=== PATIENT | male | born 2000 | race Caucasian/White ===

== ENCOUNTER 2021-01-17 14:27 | Emergency (ER) | payer OTHER, SELFPAY ==
[2021-01-17 15:02] VITALS: BP 125/65; PULSE 71; RESP 18; TEMP 36.7; O2SAT 97; BMI 31.0
[2021-01-17 16:26] LABS: MANUAL DIFF FLAG NO
[2021-01-17 16:27] LABS: Basophils Percent Auto 0.2 % (0-2); Eosinophils Percent Auto 0.3 % (0-4); Hematocrit 47.7 % (42-52); Hemoglobin 15.3 g/dl (14.0-18.0); Imm Gran Abs Auto 0.07 X10*3/uL (0.00-0.03); Imm Gran Pct Auto 0.5 % (0.0-0.4); Lymphocytes Absolute Auto 1.5 X10*3/uL (1.2-4.9); Lymphocytes Percent Auto 10.2 % (20-40); Mean Corpuscular HGB Conc 32.1 g/dl (31.0-36.0); Mean Corpuscular Hemoglobin 29.2 pg (27.0-33.0); Monocytes Absolute Auto 0.8 X10*3/uL (0.1-1.2); Monocytes Percent Auto 5.4 % (2-11); Neutrophils Absolute Auto 12.2 X10*3/uL (2.0-8.3); Neutrophils Percent Auto 83.4 % (45-73); Platelet Count 212 X10*3/uL (160-400); Red Blood Count 5.24 X10*6/uL (4.60-5.80); Red Cell Distribution Width 12.5 % (11.0-16.0); White Blood Count 14.6 X10*3/uL (4.8-10.8)
[2021-01-17 17:00] LABS: Anion Gap 11 (12-20); Blood Urea Nitrogen 13 mg/dL (9-16); Calcium 9.5 mg/dL (8.4-10.2); Carbon Dioxide 29 mmol/L (22-29); Chloride 105 mmol/L (96-108); Creatinine Clr Calc Pharmacy 151.2; Estimated Glomerular Filt Rate > 60; Glucose Random 85 mg/dL (60-115); Potassium 4.2 mmol/L (3.3-5.1); Sodium 141 mmol/L (135-145)
[2021-01-17 17:09] LABS: Glucose Urine UA NEG (NEG); Leukocyte Esterase Urine NEG (NEG); Nitrite Urine NEG (NEG); Specific Gravity - Urine 1.025 (1.005-1.025); Urine Blood 2+ (NEG); Urine Ketones NEG (NEG); Urine Protein 2+ MG/DL (NEG-TRACE)
[2021-01-17 17:35] LABS: Appearance Urine TURBID; Color Urine RED
[2021-01-17 17:38] LABS: RBC Urine TNTC /HPF (0); Renal Epithelial Cells Urine TRACE /LPF; WBC Urine 0 /HPF (0-4)
[2021-01-18 05:47] LABS: CT PCR NOT DETECTED (Not Detect.); NG PCR NOT DETECTED (Not Detect.)
== END 2021-01-17 20:10 | disposition left against medical advice (07) ==
PROVIDERS: Emergency Provider Emergency Medicine; PCP Pediatrics
DX: R31.9 Hematuria, unspecified (principal); M54.5 Low back pain; Z87.442 Personal history of urinary calculi
CPT/HCPCS: 36415; 80048; 81001; 81003; 85025; 87491; 87591; 99283

== ENCOUNTER 2021-05-27 21:02 | Emergency (ER) | payer OTHER, SELFPAY ==
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
[2021-05-27 21:06] VITALS: BP 139/67; PULSE 86; RESP 16; TEMP 36.6; O2SAT 98; BMI 31.9
[2021-05-28] VITALS: BP 145/85; PULSE 64; RESP 16; O2SAT 98
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
--- NOTE | 2021-05-28 02:10 | PC.NURSE ---
RN to bedside to provide patient with discharge instructions per md instructions and patient found to not be present in bed. prior to rn retrieving discharge paperwork the patient was noted sitting on the stretcher with his mother, brother (discharged patient) and could be heard saying I'm ready to go . Pt was not observed ambulating out of the emergency room
== END 2021-05-28 02:10 | disposition home or self-care (01) ==
PROVIDERS: Emergency Provider Emergency Medicine Emergency Medical Services; PCP Pediatrics
DX: S09.90XA Unspecified injury of head, initial encounter (principal); S63.602A Unspecified sprain of left thumb, initial encounter; M79.642 Pain in left hand; G44.309 Post-traumatic headache, unspecified, not intractable; Y04.8XXA Assault by other bodily force, initial encounter; Y93.9 Activity, unspecified; Y92.9 Unspecified place or not applicable; Y99.9 Unspecified external cause status
CPT/HCPCS: 70450; 73130; 99283; 99284

== ENCOUNTER 2022-01-25 11:49 | Emergency (ER) | payer OTHER, SELFPAY ==
[2022-01-25 12:32] VITALS: BP 133/54; PULSE 52; RESP 16; TEMP 36.6; O2SAT 94; BMI 35.6
--- NOTE | 2022-01-25 15:45 | ED.GENADULT ---
HPI - General Adult General Chief complaint: General Medical Stated complaint: l foot ingrown toenail Time Seen by Provider: 01/25/22 15:14 Source: patient Mode of arrival: ambulatory Limitations: no limitations History of Present Illness HPI narrative: 21-year-old male presents to ED for left ingrown toenail that has been painful for the past couple of days. Patient denies any fever, chills, recent trauma to the foot. Patient states some drainage from ingrown nail. Related Data Previous Rx's Medication Instructions Recorded cephalexin 500 mg capsule 500 mg PO QID 7 Days #28 cap 01/25/22 doxycycline hyclate 100 mg tablet 100 mg PO BID 7 Days #14 tab 01/25/22 naproxen 500 mg tablet 500 mg PO BID PRN 10 Days #20 tab 01/25/22 triamcinolone acetonide 0.5 % 1 appl TOPICAL BID 14 Days #15 g 01/25/22 topical cream Allergies Allergy/AdvReac Type Severity Reaction Status Date / Time No Known Allergies Allergy Verified 01/25/22 12:32 [No Known Allergies*] Review of Systems Review of Systems: Left ingrown toenail Yes all other systems are reviewed and are negative [facility] Past Medical History Medical History (Updated 01/25/22 @ 15:55 by KLAUS Ortiz) Kidney stones Surgical History (Updated 01/17/21 @ 15:04 by Rena Reed) H/O hernia repair Social History Social History Advance Directives: No Advance Directives Information Provided: No Physical Exam ED Vital Signs: Vital Signs - 24 hr 01/25/22 12:32 Temperature 97.9 F Pulse Rate 52 Respiratory Rate 16 Blood Pressure 133/54 L Pulse Oximetry 94 BMI result Body Mass Index 35.6 Const General: cooperative, healthy appearing, comfortable, no acute distress, well developed, alert, awake and Physically active Orientation/consciousness: patient oriented x3 HENMT Head: Yes normal to inspection, Yes No palpable skull fracture present, Yes normocephalic, Yes atraumatic, Yes abrasion and No Acrocyanosis present Eyes General: appearance normal, both eyes and all related structures Neck Neck: Yes normal visual inspection, Yes full ROM, Yes no lymphadenopathy, Yes no meningeal signs, Yes trachea midline, Yes supple, No anterior neck swelling and No tender Chest Chest palpation & inspection: normal inspection of the chest and normal palpation of entire chest wall Resp Effort & Inspection: normal respiratory effort and able to speak in complete sentences Auscultation: clear to auscultation bilaterally Cardio Jugular venous distension: no JVD Heart sounds: S1 normal heart sound present and S2 normal heart sound present GI Inspection: Yes normal to inspection and No abdominal wall ecchymosis Palpation (GI): Soft to palpation, not firm, nontender, no guarding and not rigid General: No CVA tenderness and Yes no CVA tenderness Back/Spine/Pelvis Back: no CVA tenderness, No CVA tenderness and No back tenderness Skin General skin exam: no rashes or lesions noted and elasticity normal Neuro General: patient oriented x3, gait normal, no meningeal signs and CN's II-XI intact bilaterally Cranial nerves: Yes CN's II-XII intact bilaterally Extrem General: Yes normal to inspection and Yes full ROM Ankle/foot/toe images: 1. Positive for left finger toenail that is infected with pus drainage and some blood and redness. Negative for ecchymosis, gangrene, or obvious deformity. Lower extremity pedal pulses intact. Lower extremity motor/nose/vascular exam intact Psych Appearance: grossly normal, well kempt and not disheveled Course Course Course Narrative: Infected ingrown toenail. Reevaluation(s) Reevaluation #1: It was discussed with patient twice by me to incise the ingrown toenail due to the infection of drainage. He was informed digital block will be done and then I would excise the nail but patient refused. Patient prefer conservative management. Patient will be discharged with antibiotics and recommend to soak foot in water 4 times a day for 20 minutes. Patient will be referred to contract project manager. Time: 15:52 Medical Decision Making [facility] Narrative Medical decision making narrative: Infected ingrown toe nail Discharge Plan Discharge Clinical Impression: Ingrowing nail, left great toe Patient Disposition: Home, Self-Care Instructions: Ingrown Nail (ED), Warm Compress or Soak (ED) Additional Instructions: You will be discharged with antibiotics. Recommend warm compress 4 times a day for 20 minutes ( soak foot into warm water). Return to the ED if there is increased swelling, increased redness, profuse pus discharge, fever, chills, bluish black discoloration of toe, red streaks known upper extremity, or any other concerning symptoms. . Prescriptions: New cephalexin 500 mg capsule 500 mg PO QID 7 Days Qty: 28 0RF doxycycline hyclate 100 mg tablet 100 mg PO BID 7 Days Qty: 14 0RF naproxen 500 mg tablet 500 mg PO BID PRN (Reason: pain) 10 Days Qty: 20 0RF triamcinolone acetonide 0.5 % cream 1 appl topical BID 14 Days Qty: 15 0RF Referrals: Brian Cruz [Physician] - (Left ingrown infected toenail) Stand Alone Forms: Work/School Release Interventions: ED Discharge Assessment Last Done: 01/25/22 16:44 Discharge Date/Time: 01/25/22 16:45 Print Language: Chadian
== END 2022-01-25 16:45 | disposition home or self-care (01) ==
PROVIDERS: Emergency Provider Student in an Organized Health Care Education/Training Program
DX: L60.0 Ingrowing nail (principal); M79.675 Pain in left toe(s)
CPT/HCPCS: 99283

== ENCOUNTER 2022-04-06 10:27 | Emergency (ER) | payer OTHER, SELFPAY ==
[2022-04-06 10:38] VITALS: PULSE 90; RESP 18; TEMP 37; O2SAT 97; BMI 28.7
--- NOTE | 2022-04-06 11:08 | ED.WOUNDLAC ---
HPI - Wound/Laceration General Chief Complaint: Wound/Laceration Stated Complaint: Ingrown L foot Time Seen by Provider: 04/06/22 10:54 Source: patient Mode of arrival: ambulatory Limitations: no limitations History of Present Illness HPI narrative: 21-year-old male presenting to the ED with complaints of ingrown toenail to the left great toenail that he has had for the past few weeks to months. He reports that recently he was trying to remove the ingrown toenail himself although was unsuccessful and now has worsening pain today. He denies any fevers, chills, recent trauma to foot/toes or any other symptoms complaints concerns or injuries at this time. Related Data Previous Rx's Medication Instructions Recorded cephalexin 500 mg capsule 500 mg PO QID 7 days #28 caps 01/25/22 doxycycline hyclate 100 mg tablet 100 mg PO BID 7 days #14 tabs 01/25/22 naproxen 500 mg tablet 500 mg PO BID PRN pain 10 days #20 01/25/22 tabs triamcinolone acetonide 0.5 % 1 appl topical BID 2 weeks #15 01/25/22 topical cream grams acetaminophen 300 mg-codeine 30 mg 1 tab PO Q8H PRN pain #14 tabs 04/06/22 tablet cephalexin 500 mg capsule 500 mg PO Q6H 10 days #40 caps 04/06/22 doxycycline monohydrate 100 mg 100 mg PO BID 10 days #20 tabs 04/06/22 tablet Allergies Allergy/AdvReac Type Severity Reaction Status Date / Time No Known Allergies Allergy Verified 01/25/22 12:32 [No Known Allergies*] Review of Systems Review of Systems: Constitutional : Denies history of same, Denies any other sites involved, Denies IV drug use, Denies history of MRSA, Denies swollen glands, Denies injury, Denies Fever, Denies Chills, + Sig Pain, Denies Systemic symptoms Cardiovascular : No Chest Pain, No SOB Respiratory : No Dyspnea Gastrointestinal : No abdominal pain Musculoskeletal : No Joint Swelling Skin : + ingrown toenail to left great toe lateral aspect with surrounding erythema and significant pain, no abscess, No skin laceration, No Foreign bodies, Denies bites, Denies discharge Neuro : No Weakness, No Numbness/tingling Psych : No SI/HI/thoughts of self injury Yes all other systems are reviewed and are negative PMFSH Past Medical History Attestation statement: The following information was validated with the patient. Source: old records reviewed and nursing notes reviewed Medical History Kidney stones Surgical History H/O hernia repair Social History Social History Advance Directives: No Advance Directives Information Provided: No Physical Exam Vital Signs: Vital Signs: Last Vital Signs Temp 98.6 F 04/06/22 10:38 Pulse 90 04/06/22 10:38 Resp 18 04/06/22 10:38 Pulse Ox 97 04/06/22 10:38 O2 Del Method 04/06/22 10:38 BMI result Body Mass Index 28.7 vital signs have been reviewed as normal and appeared to be correct. Blood pressure normal Heart rate normal. Respiration rate normal. Temperature normal. Oxygen saturation normal. Appearance: Alert. Oriented X3. No acute distress. Head: Normal external exam. Normocephalic. Atraumatic. Eyes: PERRLA. EOMI. Conjunctiva and sclera normal. Eyelids normal. ENT: Pharynx normal. Uvula midline. Moist mucous membranes. Neck: Normal inspection. Neck supple. FROM. CVS: Normal heart rate and rhythm. Respiratory: No respiratory distress. Painless inspiration. Skin: Skin warm and dry. Normal skin color. Normal skin turgor. To left great toe the lateral aspect patient has a ingrown toenail with moderate soft tissue swelling and erythema. No purulent drainage or foreign bodies noted at this time no additional rashes/lesions/lacerations noted. Extremities: Left great toe with some tenderness and soft tissue swelling although no bony tenderness noted. Otherwise all other extremities exhibit normal range of motion nontender. Neuro: Oriented X 3. No motor deficit. No sensory deficit. Reflexes normal. Normal steady gait. No focal neuro deficits noted. Vascular: + radial pulses/+ 2 distal pedal pulses/+2 dorsalis pedis b/l. Normal cap refill. No cyanosis noted to upper extremity nails and lower extremity toes nails. Course Course Course Narrative: Patient now status post ingrown toenail removal. I removed the large ingrown toenail. Patient tolerated procedure well. No complications. Will DC home with antibiotics and instructions to return if any new or worsening symptoms and follow-up with podiatry. Patient understands agrees with this plan. MDM - Wound/Laceration Medical Records Attestation: I reviewed the patient's medical records. Discharge Plan Discharge Clinical Impression: Ingrowing left great toenail Patient Disposition: Home, Self-Care Instructions: Ingrown Nail (ED), Warm Compress or Soak (ED) Prescriptions: New doxycycline monohydrate 100 mg tablet 100 mg PO BID 10 Days Qty: 20 0RF cephalexin 500 mg capsule 500 mg PO Q6H 10 Days Qty: 40 0RF acetaminophen-codeine 300-30 mg tablet 1 tab PO Q8H PRN (Reason: pain) Qty: 14 0RF No Action cephalexin 500 mg capsule 500 mg PO QID 7 Days Qty: 28 0RF doxycycline hyclate 100 mg tablet 100 mg PO BID 7 Days Qty: 14 0RF naproxen 500 mg tablet 500 mg PO BID PRN (Reason: pain) 10 Days Qty: 20 0RF triamcinolone acetonide 0.5 % cream 1 appl topical BID 14 Days Qty: 15 0RF Referrals: Brian Cruz [Physician] - 2 days (call to make a follow up appointment ) Stand Alone Forms: Work/School Release
== END 2022-04-06 11:50 | disposition home or self-care (01) ==
PROVIDERS: Emergency Provider Emergency Medicine
DX: L60.0 Ingrowing nail (principal); M79.675 Pain in left toe(s)
CPT/HCPCS: 11730; 99282; 99283; 99284

== ENCOUNTER 2022-08-03 16:16 | Emergency (ER) | payer OTHER, SELFPAY ==
--- NOTE | ~2022-08-03 | XR_ITS ---
EXAMINATION: XR CHEST CLINICAL INFORMATION: Chest pain. COMPARISON: Chest radiograph 09/24/2017. TECHNIQUE: Frontal view of the chest was obtained. FINDINGS: Normal appearance of the cardiomediastinal silhouette. Suspect subtle focal hazy airspace opacities in the right lower lobe. No pleural effusion. No pneumothorax. No acute osseous abnormalities. XR/XR chest 1V IMPRESSION: Suspect subtle focal airspace opacities in the right lower lobe which could be related with aspiration or early infiltrate in the appropriate clinical context.
--- NOTE | ~2022-08-03 | US_ITS ---
EXAMINATION: US VENOUS ULTRASOUND WITH DOPPLER LOWER EXTREMITY, LEFT CLINICAL INFORMATION: Left lower extremity pain. COMPARISON: None TECHNIQUE: Ultrasound of the deep veins is performed from the hip to the calf with compression sonography and color and pulse Doppler assessment. Spectral analysis with color-flow imaging is performed. FINDINGS: There is normal venous compression and respiratory variation and augmented flow. The visualized common femoral vein, superficial femoral vein, profunda femoral vein, popliteal vein, and the trifurcation region shows no evidence of deep venous thrombosis. There is a 2.3 x 4.7 x 1.8 cm Carolina's cyst. If the patient's symptoms persist, followup ultrasound in 5 days 7 days might be of value to exclude proximal propagation from a non-visualized calf vein. US/US venous duplex LE IMPRESSION: 1. No DVT demonstrated in the left lower extremity. 2. There is a 4.7 cm Carolina's cyst.
[2022-08-03 17:07] VITALS: BP 138/72; PULSE 63; RESP 16; TEMP 36.8; O2SAT 97; BMI 34.0
--- NOTE | 2022-08-03 17:10 | ECG_ITS ---
Test Reason : GENERAL MEDICAL Blood Pressure : / mmHG Vent. Rate : 061 BPM Atrial Rate : 061 BPM P-R Int : 148 ms QRS Dur : 094 ms QT Int : 398 ms P-R-T Axes : 036 006 014 degrees QTc Int : 400 ms Normal sinus rhythm Normal ECG No previous ECGs available Referred By: Last Ortiz Electronically Signed By:Cam Almazan
--- NOTE | 2022-08-03 17:12 | ED.GENADULT ---
HPI - General Adult General Chief complaint: Extremity Problem Stated complaint: left calf bruising Time Seen by Provider: 08/03/22 18:14 Related Data Previous Rx's Medication Instructions Recorded cephalexin 500 mg capsule 500 mg PO QID 7 days #28 caps 01/25/22 doxycycline hyclate 100 mg tablet 100 mg PO BID 7 days #14 tabs 01/25/22 naproxen 500 mg tablet 500 mg PO BID PRN pain 10 days #20 01/25/22 tabs triamcinolone acetonide 0.5 % 1 appl topical BID 2 weeks #15 01/25/22 topical cream grams acetaminophen 300 mg-codeine 30 mg 1 tab PO Q8H PRN pain #14 tabs 04/06/22 tablet cephalexin 500 mg capsule 500 mg PO Q6H 10 days #40 caps 04/06/22 doxycycline monohydrate 100 mg 100 mg PO BID 10 days #20 tabs 04/06/22 tablet doxycycline monohydrate 100 mg 100 mg PO BID 10 days #20 caps 08/03/22 capsule Allergies Allergy/AdvReac Type Severity Reaction Status Date / Time No Known Allergies Allergy Verified 01/25/22 12:32 [No Known Allergies*] REPLACED BY [facility] Past Medical History Medical History Kidney stones Surgical History H/O hernia repair Social History Social History Advance Directives: No Advance Directives Information Provided: No Physical Exam ED Vital Signs: Vital Signs - 24 hr 08/03/22 17:07 Temperature 98.3 F Pulse Rate 63 Respiratory Rate 16 Blood Pressure 138/72 Pulse Oximetry 97 Oxygen Delivery Method Room Air BMI result Body Mass Index 34.0 Course Course Course Narrative: RME: patient presents to the ED for left calf pain and posterior knee pain since yesterday. 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 patient states mild chest discomfort yesterday. Venous Ultrasound of legs orderd. labs, EKG, chesr xray, and D- dimer ordered. VItal sigsn stable. LLE extremitie motor, neuro, and vascular exam is intact. Medical Decision Making Lab Data Result diagrams: 08/03/22 18:09 12/01/22 18:09 Labs: Lab Results 08/03/22 08/03/22 08/03/22 Range/Units 18:09 18:09 18:09 WBC 9.4 (4.8-10.8) X10*3/uL RBC 5.02 (4.60-5.80) X10*6/uL Hgb 14.2 (14.0-18.0) g/dl Hct 43.8 (42.0-52.0) % MCV 87.3 (80.0-98.0) fL MCH 28.3 (27.0-33.0) pg MCHC 32.4 (31.0-36.0) g/dl RDW 13.0 (11.0-16.0) % Plt Count 263 (160-400) X10*3/uL MPV 9.8 (9.4-12.4) fL Immature Gran % (Auto) 0.3 (0.0-0.4) % Neut % (Auto) 67.5 (45-73) % Lymph % (Auto) 25.8 (20-40) % [place] % (Auto) 5.4 (2-11) % Eos % (Auto) 0.8 (0-4) % Baso % (Auto) 0.2 (0-2) % Lymph # (Auto) 2.4 (1.2-4.9) X10*3/uL [place] # (Auto) 0.5 (0.1-1.2) X10*3/uL Eos # (Auto) 0.1 (0.0-0.4) X10*3/uL Baso # (Auto) 0.0 (0.0-0.2) X10*3/uL Abs Immat Gran (auto) 0.03 (0.00-0.03) X10*3/uL Absolute Neuts (auto) 6.4 (2.0-8.3) x10*3/uL Absolute Nucleated RBC 0.000 (0.0-0.012) X10*3/uL Nucleated RBC % (auto) 0.0 (0.0-0.2) /100WBC PT 11.6 (10.0-13.1) SEC INR 1.0 (0.9-1.1) APTT 34.2 (26.0-36.4) SEC D-Dimer High Sensitivty NG/ML Sodium 136 (135-145) mmol/L Potassium 3.8 (3.3-5.1) mmol/L Chloride 104 (96-108) mmol/L Carbon Dioxide 26 (22-29) mmol/L Anion Gap 10 L (12-20) BUN 12 (9-16) mg/dL Creatinine 0.80 (0.5-1.4) mg/dL Estim Creat Clear Calc 170.9 Estimated GFR > 60 Random Glucose 105 (60-115) mg/dL Calcium 9.5 (8.4-10.2) mg/dL Total Bilirubin 1.4 H (0.0-1.0) mg/dL AST 23 (5-37) U/L ALT 30 (0-40) U/L Alkaline Phosphatase 104 (39-117) U/L Troponin I High Sens (<3.5-35.0) ng/L B-Natriuretic Peptide (<100) pg/mL Total Protein 6.6 (6.5-8.0) g/dL Albumin 4.3 (3.5-5.0) g/dL 08/03/22 08/03/22 08/03/22 Range/Units 18:09 18:09 18:09 WBC (4.8-10.8) X10*3/uL RBC (4.60-5.80) X10*6/uL Hgb (14.0-18.0) g/dl Hct (42.0-52.0) % MCV (80.0-98.0) fL MCH (27.0-33.0) pg MCHC (31.0-36.0) g/dl RDW (11.0-16.0) % Plt Count (160-400) X10*3/uL MPV (9.4-12.4) fL Immature Gran % (Auto) (0.0-0.4) % Neut % (Auto) (45-73) % Lymph % (Auto) (20-40) % [place] % (Auto) (2-11) % Eos % (Auto) (0-4) % Baso % (Auto) (0-2) % Lymph # (Auto) (1.2-4.9) X10*3/uL [place] # (Auto) (0.1-1.2) X10*3/uL Eos # (Auto) (0.0-0.4) X10*3/uL Baso # (Auto) (0.0-0.2) X10*3/uL Abs Immat Gran (auto) (0.00-0.03) X10*3/uL Absolute Neuts (auto) (2.0-8.3) x10*3/uL Absolute Nucleated RBC (0.0-0.012) X10*3/uL Nucleated RBC % (auto) (0.0-0.2) /100WBC PT (10.0-13.1) SEC INR (0.9-1.1) APTT (26.0-36.4) SEC D-Dimer High Sensitivty 287 NG/ML Sodium (135-145) mmol/L Potassium (3.3-5.1) mmol/L Chloride (96-108) mmol/L Carbon Dioxide (22-29) mmol/L Anion Gap (12-20) BUN (9-16) mg/dL Creatinine (0.5-1.4) mg/dL Estim Creat Clear Calc Estimated GFR Random Glucose (60-115) mg/dL Calcium (8.4-10.2) mg/dL Total Bilirubin (0.0-1.0) mg/dL AST (5-37) U/L ALT (0-40) U/L Alkaline Phosphatase (39-117) U/L Troponin I High Sens < 3.5 (<3.5-35.0) ng/L B-Natriuretic Peptide 13 (<100) pg/mL Total Protein (6.5-8.0) g/dL Albumin (3.5-5.0) g/dL Discharge Plan Discharge Clinical Impression: Carolina cyst, Pneumonia Patient Disposition: Home, Self-Care Instructions: Bakers Cyst (ED), Community Acquired Pneumonia (ED) Additional Instructions: You were evaluated for left calf pain and midsternal chest discomfort. Venous duplex of the left lower extremity is negative for blood clot, does show a Carolina's cyst. Please follow-up with your primary care physician for continued care. Chest x-ray indicates infiltrates consistent with pneumonia. Please take doxycycline 100 mg twice a day for the 10 days. Drink plenty of fluids. I have referred you to Dr. Paulino at [facility] to establish primary care. Thank you for choosing this emergency department for evaluation. Please follow-up with primary care physician as needed. Return to the emergency department for any new, concerning, or worsening symptoms. Prescriptions: New doxycycline monohydrate 100 mg capsule 100 mg PO BID 10 Days Qty: 20 0RF No Action cephalexin 500 mg capsule 500 mg PO QID 7 Days Qty: 28 0RF doxycycline hyclate 100 mg tablet 100 mg PO BID 7 Days Qty: 14 0RF naproxen 500 mg tablet 500 mg PO BID PRN (Reason: pain) 10 Days Qty: 20 0RF triamcinolone acetonide 0.5 % cream 1 appl topical BID 14 Days Qty: 15 0RF doxycycline monohydrate 100 mg tablet 100 mg PO BID 10 Days Qty: 20 0RF cephalexin 500 mg capsule 500 mg PO Q6H 10 Days Qty: 40 0RF acetaminophen-codeine 300-30 mg tablet 1 tab PO Q8H PRN (Reason: pain) Qty: 14 0RF Referrals: Christiano Paulino MD [Physician] - 3 days (Establish primary care) Interventions: ED Discharge Assessment Last Done: 08/03/22 20:43 Discharge Date/Time: 08/03/22 20:44
[2022-08-03 18:13] LABS: MANUAL DIFF FLAG NO
[2022-08-03 18:16] LABS: Basophils Percent Auto 0.2 % (0-2); Eosinophils Absolute Auto 0.1 X10*3/uL (0.0-0.4); Eosinophils Percent Auto 0.8 % (0-4); Hematocrit 43.8 % (42.0-52.0); Hemoglobin 14.2 g/dl (14.0-18.0); Imm Gran Abs Auto 0.03 X10*3/uL (0.00-0.03); Imm Gran Pct Auto 0.3 % (0.0-0.4); Lymphocytes Absolute Auto 2.4 X10*3/uL (1.2-4.9); Lymphocytes Percent Auto 25.8 % (20-40); Mean Corpuscular HGB Conc 32.4 g/dl (31.0-36.0); Mean Corpuscular Hemoglobin 28.3 pg (27.0-33.0); Mean Corpuscular Volume 87.3 fL (80.0-98.0); Mean Platelet Volume 9.8 fL (9.4-12.4); Monocytes Absolute Auto 0.5 X10*3/uL (0.1-1.2); Monocytes Percent Auto 5.4 % (2-11); Neutrophils Absolute Auto 6.4 x10*3/uL (2.0-8.3); Neutrophils Percent Auto 67.5 % (45-73); Platelet Count 263 X10*3/uL (160-400); Red Blood Count 5.02 X10*6/uL (4.60-5.80); White Blood Count 9.4 X10*3/uL (4.8-10.8)
--- NOTE | 2022-08-03 18:17 | ED_ITS ---
HPI - Extremity Problem General Chief complaint: Extremity Problem <Lydia Mcnamara NP - Last Filed: 08/04/22 00:18> Stated complaint: left calf bruising <Lydia Mcnamara NP - Last Filed: 08/04/22 00:18> Time Seen by Provider: 08/03/22 18:14 <Lydia Mcnamara NP - Last Filed: 08/04/22 00:18> Source: patient <Lydia Mcnamara NP - Last Filed: 08/04/22 00:18> Mode of arrival: ambulatory <Lydia Mcnamara NP - Last Filed: 08/04/22 00:18> Limitations: no limitations <Lydia Mcnamara NP - Last Filed: 08/04/22 00:18> History of Present Illness MD Complaint: extremity pain <Lydia Mcnamara NP - Last Filed: 08/04/22 00:18> Onset (ago): day(s) (4) <Lydia Mcnamara NP - Last Filed: 08/04/22 00:18> Pain Consistency: constant <Lydia Mcnamara NP - Last Filed: 08/04/22 00:18> Location: left and lower extremity <Lydia Mcnamara NP - Last Filed: 08/04/22 00:18> Severity scale (1-10): 5 <Lydia Mcnamara NP - Last Filed: 08/04/22 00:18> Quality: aching <Lydia Mcnamara NP - Last Filed: 08/04/22 00:18> Radiation: none <Lydia Mcnamara NP - Last Filed: 08/04/22 00:18> Relieving factors: rest <Lydia Mcnamara NP - Last Filed: 08/04/22 00:18> Exacerbating factors: palpation <Lydia Mcnamara NP - Last Filed: 08/04/22 00:18> Associated symptoms: chest pain <Lydia Mcnamara NP - Last Filed: 08/04/22 00:18> Related Data Home medications: Previous Rx's Medication Instructions Recorded cephalexin 500 mg capsule 500 mg PO QID 7 days #28 caps 01/25/22 doxycycline hyclate 100 mg tablet 100 mg PO BID 7 days #14 tabs 01/25/22 naproxen 500 mg tablet 500 mg PO BID PRN pain 10 days #20 01/25/22 tabs triamcinolone acetonide 0.5 % 1 appl topical BID 2 weeks #15 01/25/22 topical cream grams acetaminophen 300 mg-codeine 30 mg 1 tab PO Q8H PRN pain #14 tabs 04/06/22 tablet cephalexin 500 mg capsule 500 mg PO Q6H 10 days #40 caps 04/06/22 doxycycline monohydrate 100 mg 100 mg PO BID 10 days #20 tabs 04/06/22 tablet doxycycline monohydrate 100 mg 100 mg PO BID 10 days #20 caps 08/03/22 capsule <PRAVEEN Hansen Last Filed: 08/04/22 00:18> Allergies/Adverse reactions: Allergies Allergy/AdvReac Type Severity Reaction Status Date / Time No Known Allergies Allergy Verified 01/25/22 12:32 [No Known Allergies*] <PRAVEEN Hansen Last Filed: 08/04/22 00:18> Review of Systems Review of Systems: Constitutional: No Fever, No Chills ENT/Mouth: No Ear Pain, No Hoarseness, No sore throat Eyes: No Eye Pain, No Swelling, No Redness, No Foreign Body Cardiovascular: Positive Chest Pain, No SOB Respiratory: Pulse Cough, No Dyspnea Gastrointestinal: No Nausea, No Vomiting, No Diarrhea, No abdominal Pain Genitourinary: No Dysuria, No Hematuria Musculoskeletal: positive left lower extremity pain, No Myalgias, No Joint Swelling Skin: No Skin lacerations, No rash Neuro: No Weakness, No Numbness, No Paresthesias, No Loss of Consciousness, No Dizziness, No Headache Psych: No Anxiety/Panic, No Depression Heme/Lymph: no easy bruising, no Lymphadenopathy Endocrine: No Polyuria, No Polydipsia <PRAVEEN Hansen Last Filed: 08/04/22 00:18> Yes all other systems are reviewed and are negative <PRAVEEN Hansen Last Filed: 08/04/22 00:18> [facility] Past Medical History Attestation statement: The following information was validated with the patient. <PRAVEEN Hansen Last Filed: 08/04/22 00:18> Source: old records reviewed <PRAVEEN Hansen Last Filed: 08/04/22 00:18> Medical History: Medical History Kidney stones <Lydia Mcnamara NP - Last Filed: 08/04/22 00:18> Surgical History: Surgical History H/O hernia repair <Lydia Mcnamara NP - Last Filed: 08/04/22 00:18> Social History Social History: Social History Advance Directives: No Advance Directives Information Provided: No <Lydia Mcnamara NP - Last Filed: 08/04/22 00:18> Physical Exam Vital Signs: Vital Signs: Last Vital Signs Temp 98.3 F 08/03/22 17:07 Pulse 63 08/03/22 17:07 Resp 16 08/03/22 17:07 BP 138/72 08/03/22 17:07 Pulse Ox 97 08/03/22 17:07 O2 Del Method 08/03/22 17:07 BMI result Body Mass Index 34.0 <Lydia Mcnamara NP - Last Filed: 08/04/22 00:18> Vital Signs: Last Vital Signs Temp 98.3 F 08/03/22 17:07 Pulse 63 08/03/22 17:07 Resp 16 08/03/22 17:07 BP 138/72 08/03/22 17:07 Pulse Ox 97 08/03/22 17:07 O2 Del Method 08/03/22 17:07 BMI result Body Mass Index 34.0 <Samy Mccall MD - Last Filed: 08/04/22 02:46> Appearance: Alert. Oriented X3. No acute distress. Eyes: Pupils equal, round and reactive to light. ENT: Pharynx normal. Neck: Normal inspection. Neck supple. CVS: Normal heart rate and rhythm. Pulses normal. Respiratory: No respiratory distress. Lung sounds clear to auscultation all lobes. Abdomen: Soft and nontender. Skin: Skin warm and dry. Normal skin color. Normal skin turgor. Extremities: Bruising noted to the left popliteal, 2 cm in diameter palpable hardened lump consistent with Carolina cyst to the popliteal. Brisk capillary refill. Equal pulses. No edema. Gait well-balanced well coordinated. Neuro: No motor deficit. No sensory deficit. Cranial nerves 2-12 intact. <PRAVEEN Hansen Last Filed: 08/04/22 00:18> Course Course Course Narrative: 22-year-old male presents for left-sided calf pain with some bruising, and a swollen firm patch to the back of his knee. Patient also states to have a cough, and some chest pain. 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 He does not have any coagulation factor deficiencies, and has not had blood clots in the past. Does not take any hormones, and has not had any long flights. Labs, D-dimer, and imaging ordered while patient was in the emergency department waiting room. D-dimer 287 however duplex is pending. Patient does not have pain on inspiration, wells PE score is 0. 1800 p.m. chest x-ray indicates infiltrates to the right lower lobe. Will treat with doxycycline. 20:00 duplex negative for DVT. 4.7 cm carolina cyst noted. Patient verbalized understanding of and agrees to plan of care discharge home. Verbalized understanding of signs and symptoms indicating need for emergent intervention <PRAVEEN Hansen Last Filed: 08/04/22 00:18> MDM - Extremity (Nontraumatic) MDM Narrative Medical decision making narrative: Pneumonia, COVID, influenza, bronchitis, Carolina's cyst, cellulitis <PRAVEEN Hansen Last Filed: 08/04/22 00:18> Differential Diagnosis Differential diagnosis: Likely deep vein thrombosis of lower extremity <PRAVEEN Hansen Last Filed: 08/04/22 00:18> Medical Records Attestation: I reviewed the patient's medical records. <PRAVEEN Hansen Last Filed: 08/04/22 00:18> Lab Data Attestation: I reviewed the patient's lab results. <PRAVEEN Hansen Last Filed: 08/04/22 00:18> Result diagrams: : 08/03/22 18:09 08/03/22 18:09 <PRAVEEN Hansen Last Filed: 08/04/22 00:18> Labs: Lab Results 08/03/22 08/03/22 08/03/22 Range/Units 18:09 18:09 18:09 WBC 9.4 (4.8-10.8) X10*3/uL RBC 5.02 (4.60-5.80) X10*6/uL Hgb 14.2 (14.0-18.0) g/dl Hct 43.8 (42.0-52.0) % MCV 87.3 (80.0-98.0) fL MCH 28.3 (27.0-33.0) pg MCHC 32.4 (31.0-36.0) g/dl RDW 13.0 (11.0-16.0) % Plt Count 263 (160-400) X10*3/uL MPV 9.8 (9.4-12.4) fL Immature Gran % (Auto) 0.3 (0.0-0.4) % Neut % (Auto) 67.5 (45-73) % Lymph % (Auto) 25.8 (20-40) % [place] % (Auto) 5.4 (2-11) % Eos % (Auto) 0.8 (0-4) % Baso % (Auto) 0.2 (0-2) % Lymph # (Auto) 2.4 (1.2-4.9) X10*3/uL [place] # (Auto) 0.5 (0.1-1.2) X10*3/uL Eos # (Auto) 0.1 (0.0-0.4) X10*3/uL Baso # (Auto) 0.0 (0.0-0.2) X10*3/uL Abs Immat Gran (auto) 0.03 (0.00-0.03) X10*3/uL Absolute Neuts (auto) 6.4 (2.0-8.3) x10*3/uL Absolute Nucleated RBC 0.000 (0.0-0.012) X10*3/uL Nucleated RBC % (auto) 0.0 (0.0-0.2) /100WBC PT 11.6 (10.0-13.1) SEC INR 1.0 (0.9-1.1) APTT 34.2 (26.0-36.4) SEC D-Dimer High Sensitivty NG/ML Sodium 136 (135-145) mmol/L Potassium 3.8 (3.3-5.1) mmol/L Chloride 104 (96-108) mmol/L Carbon Dioxide 26 (22-29) mmol/L Anion Gap 10 L (12-20) BUN 12 (9-16) mg/dL Creatinine 0.80 (0.5-1.4) mg/dL Estim Creat Clear Calc 170.9 Estimated GFR > 60 Random Glucose 105 (60-115) mg/dL Calcium 9.5 (8.4-10.2) mg/dL Total Bilirubin 1.4 H (0.0-1.0) mg/dL AST 23 (5-37) U/L ALT 30 (0-40) U/L Alkaline Phosphatase 104 (39-117) U/L Troponin I High Sens (<3.5-35.0) ng/L B-Natriuretic Peptide (<100) pg/mL Total Protein 6.6 (6.5-8.0) g/dL Albumin 4.3 (3.5-5.0) g/dL 08/03/22 08/03/22 08/03/22 Range/Units 18:09 18:09 18:09 WBC (4.8-10.8) X10*3/uL RBC (4.60-5.80) X10*6/uL Hgb (14.0-18.0) g/dl Hct (42.0-52.0) % MCV (80.0-98.0) fL MCH (27.0-33.0) pg MCHC (31.0-36.0) g/dl RDW (11.0-16.0) % Plt Count (160-400) X10*3/uL MPV (9.4-12.4) fL Immature Gran % (Auto) (0.0-0.4) % Neut % (Auto) (45-73) % Lymph % (Auto) (20-40) % [place] % (Auto) (2-11) % Eos % (Auto) (0-4) % Baso % (Auto) (0-2) % Lymph # (Auto) (1.2-4.9) X10*3/uL [place] # (Auto) (0.1-1.2) X10*3/uL Eos # (Auto) (0.0-0.4) X10*3/uL Baso # (Auto) (0.0-0.2) X10*3/uL Abs Immat Gran (auto) (0.00-0.03) X10*3/uL Absolute Neuts (auto) (2.0-8.3) x10*3/uL Absolute Nucleated RBC (0.0-0.012) X10*3/uL Nucleated RBC % (auto) (0.0-0.2) /100WBC PT (10.0-13.1) SEC INR (0.9-1.1) APTT (26.0-36.4) SEC D-Dimer High Sensitivty 287 NG/ML Sodium (135-145) mmol/L Potassium (3.3-5.1) mmol/L Chloride (96-108) mmol/L Carbon Dioxide (22-29) mmol/L Anion Gap (12-20) BUN (9-16) mg/dL Creatinine (0.5-1.4) mg/dL Estim Creat Clear Calc Estimated GFR Random Glucose (60-115) mg/dL Calcium (8.4-10.2) mg/dL Total Bilirubin (0.0-1.0) mg/dL AST (5-37) U/L ALT (0-40) U/L Alkaline Phosphatase (39-117) U/L Troponin I High Sens < 3.5 (<3.5-35.0) ng/L B-Natriuretic Peptide 13 (<100) pg/mL Total Protein (6.5-8.0) g/dL Albumin (3.5-5.0) g/dL <Lydia Mcnamara [employer]ER - Last Filed: 08/04/22 00:18> Lab Results 08/03/22 08/03/22 08/03/22 Range/Units 18:09 18:09 18:09 WBC 9.4 (4.8-10.8) X10*3/uL RBC 5.02 (4.60-5.80) X10*6/uL Hgb 14.2 (14.0-18.0) g/dl Hct 43.8 (42.0-52.0) % MCV 87.3 (80.0-98.0) fL MCH 28.3 (27.0-33.0) pg MCHC 32.4 (31.0-36.0) g/dl RDW 13.0 (11.0-16.0) % Plt Count 263 (160-400) X10*3/uL MPV 9.8 (9.4-12.4) fL Immature Gran % (Auto) 0.3 (0.0-0.4) % Neut % (Auto) 67.5 (45-73) % Lymph % (Auto) 25.8 (20-40) % [place] % (Auto) 5.4 (2-11) % Eos % (Auto) 0.8 (0-4) % Baso % (Auto) 0.2 (0-2) % Lymph # (Auto) 2.4 (1.2-4.9) X10*3/uL [place] # (Auto) 0.5 (0.1-1.2) X10*3/uL Eos # (Auto) 0.1 (0.0-0.4) X10*3/uL Baso # (Auto) 0.0 (0.0-0.2) X10*3/uL Abs Immat Gran (auto) 0.03 (0.00-0.03) X10*3/uL Absolute Neuts (auto) 6.4 (2.0-8.3) x10*3/uL Absolute Nucleated RBC 0.000 (0.0-0.012) X10*3/uL Nucleated RBC % (auto) 0.0 (0.0-0.2) /100WBC PT 11.6 (10.0-13.1) SEC INR 1.0 (0.9-1.1) APTT 34.2 (26.0-36.4) SEC D-Dimer High Sensitivty NG/ML Sodium 136 (135-145) mmol/L Potassium 3.8 (3.3-5.1) mmol/L Chloride 104 (96-108) mmol/L Carbon Dioxide 26 (22-29) mmol/L Anion Gap 10 L (12-20) BUN 12 (9-16) mg/dL Creatinine 0.80 (0.5-1.4) mg/dL Estim Creat Clear Calc 170.9 Estimated GFR > 60 Random Glucose 105 (60-115) mg/dL Calcium 9.5 (8.4-10.2) mg/dL Total Bilirubin 1.4 H (0.0-1.0) mg/dL AST 23 (5-37) U/L ALT 30 (0-40) U/L Alkaline Phosphatase 104 (39-117) U/L Troponin I High Sens (<3.5-35.0) ng/L B-Natriuretic Peptide (<100) pg/mL Total Protein 6.6 (6.5-8.0) g/dL Albumin 4.3 (3.5-5.0) g/dL 08/03/22 08/03/22 08/03/22 Range/Units 18:09 18:09 18:09 WBC (4.8-10.8) X10*3/uL RBC (4.60-5.80) X10*6/uL Hgb (14.0-18.0) g/dl Hct (42.0-52.0) % MCV (80.0-98.0) fL MCH (27.0-33.0) pg MCHC (31.0-36.0) g/dl RDW (11.0-16.0) % Plt Count (160-400) X10*3/uL MPV (9.4-12.4) fL Immature Gran % (Auto) (0.0-0.4) % Neut % (Auto) (45-73) % Lymph % (Auto) (20-40) % [place] % (Auto) (2-11) % Eos % (Auto) (0-4) % Baso % (Auto) (0-2) % Lymph # (Auto) (1.2-4.9) X10*3/uL [place] # (Auto) (0.1-1.2) X10*3/uL Eos # (Auto) (0.0-0.4) X10*3/uL Baso # (Auto) (0.0-0.2) X10*3/uL Abs Immat Gran (auto) (0.00-0.03) X10*3/uL Absolute Neuts (auto) (2.0-8.3) x10*3/uL Absolute Nucleated RBC (0.0-0.012) X10*3/uL Nucleated RBC % (auto) (0.0-0.2) /100WBC PT (10.0-13.1) SEC INR (0.9-1.1) APTT (26.0-36.4) SEC D-Dimer High Sensitivty 287 NG/ML Sodium (135-145) mmol/L Potassium (3.3-5.1) mmol/L Chloride (96-108) mmol/L Carbon Dioxide (22-29) mmol/L Anion Gap (12-20) BUN (9-16) mg/dL Creatinine (0.5-1.4) mg/dL Estim Creat Clear Calc Estimated GFR Random Glucose (60-115) mg/dL Calcium (8.4-10.2) mg/dL Total Bilirubin (0.0-1.0) mg/dL AST (5-37) U/L ALT (0-40) U/L Alkaline Phosphatase (39-117) U/L Troponin I High Sens < 3.5 (<3.5-35.0) ng/L B-Natriuretic Peptide 13 (<100) pg/mL Total Protein (6.5-8.0) g/dL Albumin (3.5-5.0) g/dL <Samy Mccall MD - Last Filed: 08/04/22 02:46> Imaging Data Chest x-ray: Attestation: I personally reviewed and interpreted this imaging study as follows: <Lydia Mcnamara NP - Last Filed: 08/04/22 00:18> Radiologist's impression: EXAMINATION: XR CHEST CLINICAL INFORMATION: Chest pain. COMPARISON: Chest radiograph 09/24/2017. TECHNIQUE: Frontal view of the chest was obtained. FINDINGS: Normal appearance of the cardiomediastinal silhouette. Suspect subtle focal hazy airspace opacities in the right lower lobe. No pleural effusion. No pneumothorax. No acute osseous abnormalities. XR/XR chest 1V IMPRESSION: Suspect subtle focal airspace opacities in the right lower lobe which could be related with aspiration or early infiltrate in the appropriate clinical context. <Lydia Mcnamara NP - Last Filed: 08/04/22 00:18> Duplex: Attestation: I personally reviewed and interpreted this imaging study as follows: <Lydia Mcnamara NP - Last Filed: 08/04/22 00:18> Radiologist's impression: EXAMINATION: XR CHEST CLINICAL INFORMATION: Cough. COMPARISON: None TECHNIQUE: 2 views of the chest were obtained. FINDINGS: No significant abnormality is noted involving the heart, lungs, mediastinum, bony thorax or soft tissues. XR/XR chest 2V IMPRESSION: Unremarkable examination. <Lydia Mcnamara NP - Last Filed: 08/04/22 00:18> Scores Wells DVT Localized tenderness along distribution of deep veins: 1 <Lydia Mcnamara NP - Last Filed: 08/04/22 00:18> Score: 1 <Lydia Mcnamara NP - Last Filed: 08/04/22 00:18> 1 <Samy Mccall MD - Last Filed: 08/04/22 02:46> 2-tier Risk: unlikely risk (5%) <Lydia Mcnamara NP - Last Filed: 08/04/22 00:18> unlikely risk (5%) <Samy Mccall MD - Last Filed: 08/04/22 02:46> 3-tier Risk: moderate risk (17%) <Lydia Mcnamara NP - Last Filed: 08/04/22 00:18> moderate risk (17%) <Samy Mccall MD - Last Filed: 08/04/22 02:46> Discharge Plan Discharge Clinical Impression: [place] cyst, Pneumonia <Lydia Mcnamara [employer]IDENTIAL [employer]PRAISER - Last Filed: 08/04/22 00:18> Patient Disposition: Home, Self-Care <Lydia Mcnamara NP - Last Filed: 08/04/22 00:18> Instructions: Bakers Cyst (ED), Community Acquired Pneumonia (ED) <Lydia Mcnamara NP - Last Filed: 08/04/22 00:18> Additional Instructions: You were evaluated for left calf pain and midsternal chest discomfort. Venous duplex of the left lower extremity is negative for blood clot, does show a Carolina's cyst. Please follow-up with your primary care physician for continued care. Chest x-ray indicates infiltrates consistent with pneumonia. Please take doxycycline 100 mg twice a day for the 10 days. Drink plenty of fluids. I have referred you to Dr. Paulino at [facility] to establish primary care. Thank you for choosing this emergency department for evaluation. Please follow-up with primary care physician as needed. Return to the emergency department for any new, concerning, or worsening symptoms. <Lydia Mcnamara NP - Last Filed: 08/04/22 00:18> Prescriptions: New doxycycline monohydrate 100 mg capsule 100 mg PO BID 10 Days Qty: 20 0RF No Action cephalexin 500 mg capsule 500 mg PO QID 7 Days Qty: 28 0RF doxycycline hyclate 100 mg tablet 100 mg PO BID 7 Days Qty: 14 0RF naproxen 500 mg tablet 500 mg PO BID PRN (Reason: pain) 10 Days Qty: 20 0RF triamcinolone acetonide 0.5 % cream 1 appl topical BID 14 Days Qty: 15 0RF doxycycline monohydrate 100 mg tablet 100 mg PO BID 10 Days Qty: 20 0RF cephalexin 500 mg capsule 500 mg PO Q6H 10 Days Qty: 40 0RF acetaminophen-codeine 300-30 mg tablet 1 tab PO Q8H PRN (Reason: pain) Qty: 14 0RF <Lydia Mcnamara NP - Last Filed: 08/04/22 00:18> Referrals: Christiano Paulino MD [Physician] - 3 days (Establish primary care) <Lydia Mcnamara NP - Last Filed: 08/04/22 00:18> Interventions: ED Discharge Assessment Last Done: 08/03/22 20:43 <Lydia Mcnamara NP - Last Filed: 08/04/22 00:18> Discharge Date/Time: 08/03/22 20:44 <Lydia Mcnamara NP - Last Filed: 08/04/22 00:18>
[2022-08-03 18:24] LABS: D Dimer High Sensitivity 287 NG/ML
[2022-08-03 18:26] LABS: Prothrombin Time 11.6 SEC (10.0-13.1)
[2022-08-03 18:28] LABS: Partial Thromboplastin Time 34.2 SEC (26.0-36.4)
[2022-08-03 18:32] LABS: Alanine Aminotransferase 30 U/L (0-40); Albumin Level 4.3 g/dL (3.5-5.0); Alkaline Phosphatase 104 U/L (39-117); Anion Gap 10 (12-20); Aspartate Amino Transferase 23 U/L (5-37); Bilirubin Total 1.4 mg/dL (0.0-1.0); Blood Urea Nitrogen 12 mg/dL (9-16); Calcium 9.5 mg/dL (8.4-10.2); Carbon Dioxide 26 mmol/L (22-29); Chloride 104 mmol/L (96-108); Creatinine Clr Calc Pharmacy 170.9; Estimated Glomerular Filt Rate > 60; Glucose Random 105 mg/dL (60-115); Potassium 3.8 mmol/L (3.3-5.1); Sodium 136 mmol/L (135-145); Total Protein 6.6 g/dL (6.5-8.0)
[2022-08-03 18:39] LABS: Troponin-I High Sensitivity < 3.5 ng/L (<3.5-35.0)
[2022-08-03 18:57] LABS: B Type Natriuretic Peptide 13 pg/mL (<100)
== END 2022-08-03 20:44 | disposition home or self-care (01) ==
PROVIDERS: Physician Assistant; Emergency Provider Emergency Medicine
DX: M71.22 Synovial cyst of popliteal space [Baker], left knee (principal); M79.662 Pain in left lower leg; J18.9 Pneumonia, unspecified organism
CPT/HCPCS: 36415; 71045; 80053; 83880; 84484; 85025; 85379; 85610; 85730; 93005; 93971; 99283; 99284